=== PATIENT | female | born 1995 | race Caucasian/White ===

== ENCOUNTER 2017-12-02 16:09 | Observation (INO) | payer BC, SELFPAY ==
[2017-12-02] VITALS (9 sets, daily range): BP systolic 103–125; BP diastolic 60–87; PULSE 72–130; RESP 16–18; TEMP 36.2–37.2; O2SAT 90–110; BMI 22.1; BMI 22.3
[2017-12-02] MEDS: 0.9% Normal Saline 1,000 ML 1000 ML IV (16:30)
--- NOTE | 2017-12-02 16:38 | CT_ITS ---
STUDY: CT ABDOMEN AND PELVIS WITH CONTRAST REASON FOR EXAM: Female, 21 years old. Left lower quadrant pain. RADIATION DOSAGE (If Supplied By Facility): CTDIvol = ( 8.04 ) mGy, DLP = ( 313.28 ) mGycm TECHNIQUE: Transaxial images were obtained from the dome of the diaphragm to the symphysis pubis with oral contrast. 100 ml of Isovue 300 contrast was administered. Sagittal and coronal images were reconstructed. Individualized dose optimization techniques were used for this CT. COMPARISON: None. FINDINGS: The visualized lung bases are unremarkable. The visualized portions of the heart are within normal limits. Normal liver. Normal gallbladder and extrahepatic biliary system. Normal spleen. Normal pancreas. Normal bilateral adrenal glands. Normal right kidney. Normal left kidney. Normal visualized stomach. Normal small intestine. Normal colon. There is a tubular, thick-walled appendix (>7mm), consistent with acute appendicitis. Appendix measures 1.1 cm across with thickened tamayo and there is mild periappendiceal stranding. No abscess or perforation. Normal abdominal aorta. Normal inferior vena cava. Normal retroperitoneum. Normal urinary bladder. Normal visualized uterus. Normal abdominal wall. Normal osseous structures. CT/Abdomen/Pelvis WITH Contrast IMPRESSION: Acute appendicitis without evidence for perforation or abscess. N.B. : The above information has been verbally conveyed by Gerry Butler MD to Dr. Abimael Mcdaniel, Referring Physician, on 12/02/2017 20:06:53 (ET). Electronically Signed: Gerry Butler MD at 19:56 EST , Service support , N.B. : The above information has been verbally conveyed by Gerry Butler MD to Dr. Abimael Mcdaniel, Referring Physician, on 12/02/2017 20:06:53 (ET).
[2017-12-02] MEDS: Ondansetron 4 MG/2 ML Vial IV (16:50)
[2017-12-02] MEDS: Ketorolac 30 MG/ML Syringe IV (16:50)
[2017-12-02 16:58] LABS: Absolute Lymphocyte Count 0.86 X10^3/ul (0.83-4.51); Absolute Neutrophil Count 15.4 X10^3/uL (2.0-7.7); Basophil# 0.01 X10^3/uL; Basophil% 0.1 % (0-1); Hematocrit 44.1 % (37-47); Hemoglobin 15.1 g/dl (12.0-15.0); Lymphocyte # 0.86 X10^3/ul (4.0); Mean Corp Hgb Conc 34.2 g/gl (32-36); Mean Corpuscular Hgb 28.3 pg (27.0-32.0); Mean Corpuscular Volume 82.6 fL (81-99); Mean Platelet Vol. 9.1 fl (6.2-12.0); Monocyte# 0.73 X10^3/uL; Monocyte% 4.3 % (0-10); Neutrophil # 15.39 X10^3/uL (2.7-7.7); Neutrophil % 90.4 % (47-70); POSITIVE COUNT NO; POSITIVE DIFFERENTIAL NO; POSITIVE MORPHOLOGY NO; Platelet Count 223 K/mm3 (150-450); RBC Distribution Width CV 11.7 % (11.6-14.6); Red Blood Count 5.34 M/mm3 (4.2-5.4)
[2017-12-02 17:10] LABS: ALB/GLOB Ratio 0.9 RATIO (0.9-2.4); AST(SGOT) 20 U/L (15-37); Alanine Aminotransfer ALT/SGPT 35 U/L (13-56); Albumin, Serum 3.8 g/dL (3.2-5.0); Alkaline Phosphatase 62 U/L (45-117); Anion Gap 14 (5-15); BUN 11 mg/dL (7-18); Calcium,Total 9.2 mg/dL (8.5-10.1); Chloride 102 mmol/L (98-107); Creatinine, Serum 0.92 mg/dL (0.55-1.02); EST Glomerular Filtration Rate 80 mL/min (>60); Est Glom Filt Rate - Afr Amer 97 mL/min (>60); Estimated Creatinine Clearance 85.58 ml/min; Globulin 4.3 g/dL (2.2-4.2); Glucose 155 mg/dL (74-106); Lipase 153 U/L (73-393); Potassium 3.6 mmol/L (3.5-5.1); Protein, Total 8.1 g/dL (6.4-8.2); Sodium Level 137 mmol/L (136-145)
[2017-12-02 17:25] LABS: Pregnancy, Serum, hCG Quali. NEGATIVE Negative (0-9 Nonpreg)
[2017-12-02 18:10] LABS: Bacteria 0 SEEN /hpf (None Seen)
[2017-12-02 18:24] LABS: Color, Urine Yellow (Yellow); Glucose, Dipstick Normal (Normal); Leukocyte Esterase-Dipstick 25 /ul (Negative); Nitrite-Dipstick Negative (Negative); Occult Blood-Urine 150 /ul (Negative); Protein-Dipstick Negative (Negative); Urine Bilirubin Dipstick Negative (Negative); Urine Clarity Sl. Cloudy (Clear); Urine Urobilinogen Normal (Normal)
[2017-12-02 18:26] LABS: Ketone-Dipstick 150 mg/dl (Negative)
[2017-12-02 18:33] LABS: Amorphous Sediment 1+; Mucous, Urine 1+ /hpf (<or=2+); Red Blood Cells-Urine 0-5 SEEN /hpf (0-5); Squamous Epithelial Cells - UA 0-5 SEEN /hpf (5-10); White Blood Cells 0-5 SEEN /hpf (0-5)
--- NOTE | 2017-12-02 20:15 | ED.VISSUMM ---
- ER Visit Summary Date of Service: 12/02/17 Chief Complaint: Abdominal pain History of Present Illness: The patient is a 21 F who presents with abdominal pain. It is been present for about 4-5 hours. She describes it as cramping but sharp at times. It waxes and wanes. It is located in the left lower abdomen. She currently reports her pain is 5 out of 10 but it has been up to 8 out of 10 at its worst. She has had 6 episodes of nonbloody nonbilious emesis. She denies diarrhea dysuria frequency urgency. She is currently on her menstrual period. She states she has had similar symptoms in the past but had pelvic ultrasound at that time but her pain seems to be higher than that. Physical Examination: Heart rate 107 vitals otherwise unremarkable Moist mucous membranes Heart regular rhythm tachycardia Lungs are clear Abdomen soft nondistended she does have some mild minimal tenderness in the mid left abdomen she has no guarding no rebound no Arana's sign or Rovsing sign Test Results: Laboratory studies notable for white blood cell count 17,000. Urinalysis is normal and is negative. CT of the abdomen and pelvis is consistent with acute appendicitis. Emergency Department Course and Treatment: She was given IV fluids Toradol and Zofran here and actually had complete resolution of her pain. Her CAT scan is consistent with acute appendicitis. I spoke to Dr. Wang, general surgeon construction quality control manager who will see the patient here in the emergency department. Treatment Plan: [] Disposition: Pending surgical evaluation Impression: Acute appendicitis This note was generated with [employer] dictation software. It may contain incorrect words, spelling, and punctuation that were not noted in review of the chart prior to signing ED Disposition - Plan for ED Patient: Chief Complaint: Abd Pain Referrals: Annabel Jaramillo MD [Primary Care Provider] -
--- NOTE | 2017-12-02 20:49 | PCM.CONS.GEN ---
Problem List (1) Appendicitis Status: Acute Qualifiers: Appendicitis type: acute appendicitis Acute appendicitis type: with localized peritonitis Qualified Code(s): K35.3 - Acute appendicitis with localized peritonitis Reason for Consult Date of Consultation: 12/02/17 History of Present Illness: The patient is a 21 F who presents with abdominal pain. It is been present for about 4-5 hours. She describes it as cramping but sharp at times. It waxes and wanes. It is located in the left lower abdomen. She currently reports her pain is 5 out of 10 but it has been up to 8 out of 10 at its worst. She has had 6 episodes of nonbloody nonbilious emesis. She denies diarrhea dysuria frequency urgency. She is currently on her menstrual period. She states she has had similar symptoms in the past but had pelvic ultrasound at that time but her pain seems to be higher than that. CAT scan was obtained which showed periappendiceal inflammation and fluid nothing that look like a ruptured appendicitis appendix itself was dilated. Past Medical History Allergies No Known Allergies Allergy (Verified 12/02/17 16:14) Home Medications: Ambulatory Orders Medication Instructions Recorded Control 1 tab PO DAILY 12/02/17 Surgical History: no surgical history Smoking Status: Never smoker Tobacco Use: Non-smoker - *Family History Maternal History Items: No pertinent history Review of Systems Constitutional: Denies: Chills, Fever, Weight Change Eyes: Denies: Blurred vision, Pain, Redness, Vision Change HEENT: Denies: Dysphasia, Ear Pain, Eye Pain, Head Aches, Hearing Changes, Sore Throat Cardiovascular: Denies: Chest Pain, Chest Pressure, Chest Tightness, Palpitations Respiratory: Denies: Cough, Hemoptysis, Shortness of breath at rest, Shortness of breath upon exertion, Wheezing Gastrointestinal: Reports: Abdominal Pain, Nausea, Vomiting Genitourinary: Denies: Dysuria, Frequency, Hematuria, Urgency Musculoskeletal: Denies: Joint Pain Skin: Denies: Lesions, Rash, Wounds Neurological: Denies: Change in Speech, Confusion, Numbness, Tingling, Seizures Psychiatric: Denies: Anxiety, Depression Endocrine: Denies: Heat/ Cold Intolerance, Polydipsia, Polyuria Hematologic/ Lymphatic: Denies: Adenopathy, Easy Bruising Patient Problems: Active and Suspected Problems Appendicitis (Acute) - Physical Exam General: Alert, Oriented x3 HEENT: Atraumatic, PERRLA, EOMI, Normocephalic Oral: Moist Mucosa Neck: Supple, No JVD Lungs: Clear to auscultation Cardiovascular: Regular rate, Regular Rhythm, No murmurs Abdomen: Bowel Sounds Present, Soft, Non-Distended, Tender - Right lower quadrant abdominal tenderness is identified no peritoneal signs is identified. Extremities: No clubbing, No cyanosis, No edema Skin: No rashes, No breakdown Musculoskeletal: No Tenderness to Palpation of Joints or Extremities Lymphatic: No Cervical, Supraclavicular, or Inguinal Adenopathy Neurological: Cranial nerves II-XII grossly intact Psych/Mental Status: Normal Affect, Appropriate Vital Signs Temp Pulse Resp BP Pulse Ox 97.1 F L 72 16 111/64 98 12/02/17 16:11 12/02/17 19:10 12/02/17 19:10 12/02/17 19:10 12/02/17 19:10 Oxygen Delivery Method Room Air Weight: 132 lb 11.492 oz Body Mass Index (BMI) 22.1 Laboratory Tests Past 24 Hrs 12/02/17 12/02/17 12/02/17 16:30 16:30 16:48 WBC 17.0 H RBC 5.34 Hgb 15.1 H Hct 44.1 MCV 82.6 MCH 28.3 MCHC 34.2 RDW 11.7 RDW Differential 35.0 L Plt Count 223 MPV 9.1 Immature Gran % (Auto) 0.200 Neut % (Auto) 90.4 H Lymph % (Auto) 5.0 L [place] % (Auto) 4.3 Eos % (Auto) 0.0 Baso % (Auto) 0.1 Absolute Neuts (auto) 15.4 H Absolute Lymphs (auto) 0.86 Total Counted Not Reportable Sodium 137 Potassium 3.6 Chloride 102 Carbon Dioxide 21.0 Anion Gap 14 BUN 11 Creatinine 0.92 Estim Creat Clear Calc 85.58 Est GFR (MDRD) Af Amer 97 Est GFR (MDRD) Non-Af 80 BUN/Creatinine Ratio 12.0 Glucose 155 H Calcium 9.2 Total Bilirubin 0.90 AST 20 ALT 35 Alkaline Phosphatase 62 Total Protein 8.1 Albumin 3.8 Globulin 4.3 H Albumin/Globulin Ratio 0.9 Lipase 153 Serum , Qual NEGATIVE Urine Color Urine Clarity Urine pH Ur Specific [place] Urine Protein Urine Glucose (UA) Urine Ketones Urine Occult Blood Urine Nitrite Urine Bilirubin Urine Urobilinogen Ur Leukocyte Esterase Urine RBC Urine WBC Ur Squamous Epith Cells Amorphous Sediment Urine Bacteria Urine Mucus 12/02/17 18:08 WBC RBC Hgb Hct MCV MCH MCHC RDW RDW Differential Plt Count MPV Immature Gran % (Auto) Neut % (Auto) Lymph % (Auto) [place] % (Auto) Eos % (Auto) Baso % (Auto) Absolute Neuts (auto) Absolute Lymphs (auto) Total Counted Sodium Potassium Chloride Carbon Dioxide Anion Gap BUN Creatinine Estim Creat Clear Calc Est GFR (MDRD) Af Amer Est GFR (MDRD) Non-Af BUN/Creatinine Ratio Glucose Calcium Total Bilirubin AST ALT Alkaline Phosphatase Total Protein Albumin Globulin Albumin/Globulin Ratio Lipase Serum , Qual Urine Color Yellow Urine Clarity Sl. Cloudy Urine pH 7.0 Ur Specific [place] 1.010 Urine Protein Negative Urine Glucose (UA) Normal Urine Ketones 150 H Urine Occult Blood 150 H Urine Nitrite Negative Urine Bilirubin Negative Urine Urobilinogen Normal Ur Leukocyte Esterase 25 H Urine RBC 0-5 SEEN Urine WBC 0-5 SEEN Ur Squamous Epith Cells 0-5 SEEN Amorphous Sediment 1+ Urine Bacteria 0 SEEN Urine Mucus 1+ Assessment/Plan Active and Suspected Problems Appendicitis (Acute) The plan is to perform a laparoscopic appendectomy. Procedure was explained in great detail with her and her mother all questions asked were answered and she agrees to proceed wrist benefits were reviewed to include bleeding infection possible delayed infection possible injury to underlying and overlying structures around the appendix.
--- NOTE | 2017-12-02 20:51 | APP_PTH ---
PATIENT: ONDINA CURRAN LOC: MS2 U#:[id number] AGE/SX: 21/F [place] [facility] [place]: Dr. Brent Wang MD : 1995 BED: 1 DIS: 12/03/2017 SPEC #: [id number] RECD: 12/04/17 10:17 STATUS: YULI RETracy #: [id number] MAAME: 12/02/17 20:[address]: Brent Wang DEPT: SURGICAL PATHOLOGY RECD BY: Ezequiel Rain ENTERED: 12/04/17 13:19 SP TYPE: APPENDIX OTHR DR: Dr. Annabel Jaramilol MD Tissues: Appendix, NOS Procedures: Surgery Specimen Level III HEADER OPERATION: Laparoscopic appendectomy PRE-OP DIAGNOSIS: Acute appendicitis TISSUE SUBMITTED: Appendix MICROSCOPIC DIAGNOSIS Appendix: Acute appendicitis and periappendicitis. SJ:acacia 12/05/17 MICROSCOPIC DESCRIPTION Slides are reviewed. GROSS DESCRIPTION Received is one container labeled with the patient's name and designated appendix. The specimen consists of an appendix measuring 7 cm in length and 1.5 cm in average diameter. No gross perforations are evident. Serial sections reveal a pinpoint lumen. The margin of excision is inked in black ink. [employer] Machine Tender sections are submitted in one cassette. / AM:acacia 12/04/17 TC:2 CPT: 93212
[2017-12-02] MEDS: Bupivacaine 0.25% 30 ML Vial (21:40)
--- NOTE | 2017-12-02 22:15 | PCM.OPRPT ---
Problem List (1) Appendicitis Status: Acute Qualifiers: Appendicitis type: acute appendicitis Acute appendicitis type: with localized peritonitis Qualified Code(s): K35.3 - Acute appendicitis with localized peritonitis Report of Operation Date of Procedure: 12/02/17 Pre-Operative Diagnosis: K 35.3 acute appendicitis Post-Operative Diagnosis: Same Surgery/Procedure Performed:: 06180 laparoscopic appendectomy Type of Anesthesia:: General Anesthesiologist: Mau Mcknight Description of Procedure: Patient was brought in the operating room placed in supine position under excellent general endotracheal intubation the abdomen was sterilely prepped and draped in the usual fashion. Local was injected infraumbilically. Incision was made down to the fascia. The fascia was grasped with a Desire. Varies needle was placed inside the abdomen. A 10/12 trocar was placed without difficulty. Patient was placed in the headdown position. A #5 trocar was placed suprapubically, a #5 trocar was placed in the left lower quadrant. Both of these were placed under direct visualization without injury to underlying structures. Patient was placed head down rotated to the left she was noted to have a retrocecal appendicitis which had not ruptured I took the mesentery and mesoappendix down with the Enseal I transected the base of the appendix with a 45 linear cutter I had excellent hemostasis both on the base and on the mesenteric blood supply. I placed a specimen a specimen bag delivered through the umbilical port without difficulty I irrigated the right lower quadrant I irrigated the pelvis she was noted to have an omental adhesion on the right fallopian tube to the omentum I took this down with the Enseal staying on the omental side. The rest of the uterus and both ovaries appear normal. There is no purulent fluid in the pelvis. There is no purulent fluid above the liver. I remove the trochars under direct visualization. Good hemostasis was noted. Close the fascia the umbilical port with a [id number] stitch of 0 Vicryl. Skin incisions were closed with subcuticular stitches of 4-0 Monocryl. Steri-Strips are applied. Sterile dressings were applied. The patient tolerated the procedure well. - Admit VTE Documentation VTE Present on Admission: No VTE Mechan Device Prophylaxis: SCD's VTE Pharm Prophylaxis ordered?: No Reason prophylaxis not ordered:: Treatment Not Indicated
--- NOTE | 2017-12-02 22:18 | OP.PCM_ITS ---
Problem List (1) Appendicitis Status: Acute Qualifiers: Appendicitis type: acute appendicitis Acute appendicitis type: with localized peritonitis Qualified Code(s): K35.3 - Acute appendicitis with localized peritonitis Report of Operation Date of Procedure: 12/02/17 Pre-Operative Diagnosis: K 35.3 acute appendicitis Post-Operative Diagnosis: Same Surgery/Procedure Performed:: [id number] laparoscopic appendectomy Type of Anesthesia:: General Anesthesiologist: Mau Mcknight Description of Procedure: Patient was brought in the operating room placed in supine position under excellent general endotracheal intubation the abdomen was sterilely prepped and draped in the usual fashion. Local was injected infraumbilically. Incision was made down to the fascia. The fascia was grasped with a Desire. Varies needle was placed inside the abdomen. A 10/12 trocar was placed without difficulty. Patient was placed in the headdown position. A #5 trocar was placed suprapubically, a #5 trocar was placed in the left lower quadrant. Both of these were placed under direct visualization without injury to underlying structures. Patient was placed head down rotated to the left she was noted to have a retrocecal appendicitis which had not ruptured I took the mesentery and mesoappendix down with the Enseal I transected the base of the appendix with a 45 linear cutter I had excellent hemostasis both on the base and on the mesenteric blood supply. I placed a specimen a specimen bag delivered through the umbilical port without difficulty I irrigated the right lower quadrant I irrigated the pelvis she was noted to have an omental adhesion on the right fallopian tube to the omentum I took this down with the Enseal staying on the omental side. The rest of the uterus and both ovaries appear normal. There is no purulent fluid in the pelvis. There is no purulent fluid above the liver. I remove the trochars under direct visualization. Good hemostasis was noted. Close the fascia the umbilical port with a [id number] stitch of 0 Vicryl. Skin incisions were closed with subcuticular stitches of 4-0 Monocryl. Steri- Strips are applied. Sterile dressings were applied. The patient tolerated the procedure well. - Admit VTE Documentation VTE Present on Admission: No VTE Mechan Device Prophylaxis: SCD's VTE Pharm Prophylaxis ordered?: No Reason prophylaxis not ordered:: Treatment Not Indicated
[2017-12-02] MEDS: Lactated Ringers 1,000 ML 75 ML IV (23:20)
[2017-12-03 00:50] VITALS: BP 106/66; PULSE 100; RESP 16; TEMP 37.3; O2SAT 98
[2017-12-03 02:50] VITALS: BP 109/62; PULSE 102; RESP 16; TEMP 37.1; O2SAT 98
[2017-12-03] MEDS: Piperacil/Tazobactam 3.375 GM/50 ML ML IV ×2 (05:33→13:05)
[2017-12-03 08:45] VITALS: BP 114/75; PULSE 89; RESP 16; TEMP 36.8; O2SAT 100
--- NOTE | 2017-12-03 11:27 | DCINST_ITS ---
Discharge Diet: Light diet - advance as tolerated - if you have questions about your diet instructions, please talk to you doctor. Discharge Activity: May Not Drive - for 3-5 days or while taking narcotic pain meds. May shower in (days): 1 Call your doctor if your incision/area has: Continuous Slow Oozing, Sudden Increased Bleeding, Increased Pain/ Swelling, Increased Redness, Foul Smelling Discharge Call your doctor if you observe: Fever of 101 or Higher Suture Line Care: Avoid Pulling/Pushing, Avoid Pinching/Bending Additional Dressing/Incision Instructions:: Keep dressing clean and dry. Change or remove dressing in 2 days. Leave steri strips for 1 week. May protect with a gauze bandaid. Medications to take at Discharge Control 1 tab PO DAILY 12/02/17 Oxycodone HCl/Acetaminophen [Percocet 5/325] 1 - 2 tab PO Q4H PRN PRN 4 Days # 30 tab 12/03/17 Allergies/Adverse Reactions: Allergies No Known Allergies Allergy (Verified 12/02/17 16:14) The following prescriptions were given: Oxycodone HCl/Acetaminophen [Percocet 5/325] 1 - 2 tab PO Q4H PRN PRN 4 Days # 30 tab PRN Reason: Pain Primary Care Physician: Annabel Jaramillo MD [Primary Care Provider] - Please Follow Up With: Brent Wang MD - [phone] When: Call to make a follow up appointment with your doctor in 1 week.
--- NOTE | 2017-12-03 11:27 | PCM.PN.SRG ---
Patient Problems: Active and Suspected Problems Appendicitis (Acute) Subjective: Patient's pain is improving. She has discomfort at her incisional site but abdominal discomfort is no longer present. - Physical Exam Abdomen: Bowel Sounds Present, Soft, Non Tender, Non-Distended Vital Signs Temp Pulse Resp BP Pulse Ox 98.3 F 89 16 114/75 100 12/03/17 08:45 12/03/17 08:45 12/03/17 08:45 12/03/17 08:45 12/03/17 08:45 Oxygen Flow Rate 2 Oxygen Delivery Method Room Air Weight: 134 lb 0.657 oz Body Mass Index (BMI) 22.3 Intake and Output for Last 24 Hours 12/01/17 12/02/17 12/03/17 23:59 23:59 23:59 Intake Total 2099 781 / 781 Output Total 1700 / 1700 Balance 2099 -919 / -919 Laboratory Tests Past 24 Hrs 12/02/17 12/02/17 12/02/17 16:30 16:30 16:48 WBC 17.0 H RBC 5.34 Hgb 15.1 H Hct 44.1 MCV 82.6 MCH 28.3 MCHC 34.2 RDW 11.7 RDW Differential 35.0 L Plt Count 223 MPV 9.1 Immature Gran % (Auto) 0.200 Neut % (Auto) 90.4 H Lymph % (Auto) 5.0 L [place] % (Auto) 4.3 Eos % (Auto) 0.0 Baso % (Auto) 0.1 Absolute Neuts (auto) 15.4 H Absolute Lymphs (auto) 0.86 Total Counted Not Reportable Sodium 137 Potassium 3.6 Chloride 102 Carbon Dioxide 21.0 Anion Gap 14 BUN 11 Creatinine 0.92 Estim Creat Clear Calc 85.58 Est GFR (MDRD) Af Amer 97 Est GFR (MDRD) Non-Af 80 BUN/Creatinine Ratio 12.0 Glucose 155 H Calcium 9.2 Total Bilirubin 0.90 AST 20 ALT 35 Alkaline Phosphatase 62 Total Protein 8.1 Albumin 3.8 Globulin 4.3 H Albumin/Globulin Ratio 0.9 Lipase 153 Serum , Qual NEGATIVE Urine Color Urine Clarity Urine pH Ur Specific [place] Urine Protein Urine Glucose (UA) Urine Ketones Urine Occult Blood Urine Nitrite Urine Bilirubin Urine Urobilinogen Ur Leukocyte Esterase Urine RBC Urine WBC Ur Squamous Epith Cells Amorphous Sediment Urine Bacteria Urine Mucus 12/02/17 18:08 WBC RBC Hgb Hct MCV MCH MCHC RDW RDW Differential Plt Count MPV Immature Gran % (Auto) Neut % (Auto) Lymph % (Auto) [place] % (Auto) Eos % (Auto) Baso % (Auto) Absolute Neuts (auto) Absolute Lymphs (auto) Total Counted Sodium Potassium Chloride Carbon Dioxide Anion Gap BUN Creatinine Estim Creat Clear Calc Est GFR (MDRD) Af Amer Est GFR (MDRD) Non-Af BUN/Creatinine Ratio Glucose Calcium Total Bilirubin AST ALT Alkaline Phosphatase Total Protein Albumin Globulin Albumin/Globulin Ratio Lipase Serum , Qual Urine Color Yellow Urine Clarity Sl. Cloudy Urine pH 7.0 Ur Specific [place] 1.010 Urine Protein Negative Urine Glucose (UA) Normal Urine Ketones 150 H Urine Occult Blood 150 H Urine Nitrite Negative Urine Bilirubin Negative Urine Urobilinogen Normal Ur Leukocyte Esterase 25 H Urine RBC 0-5 SEEN Urine WBC 0-5 SEEN Ur Squamous Epith Cells 0-5 SEEN Amorphous Sediment 1+ Urine Bacteria 0 SEEN Urine Mucus 1+ Assessment/Plan Active and Suspected Problems Appendicitis (Acute) We will give the patient one last dose of antibiotics today then she may be discharged on pain medication only
[2017-12-03 13:45] VITALS: BP 112/72; PULSE 78; RESP 16; TEMP 37; O2SAT 99
== END 2017-12-03 14:00 | disposition home or self-care (01) ==
LOC: ED 17:53 → SDC 20:42 → MS2 20:43
PROVIDERS: Admitting Provider Surgery; Emergency Provider Emergency Medicine; Family Provider Family Medicine; PCP Family Medicine; Visit Provider Surgery
PROC: 0DTJ4ZZ Resection of Appendix, Percutaneous Endoscopic Approach (ICD-10-PCS; CPT 44970; principal; 2017-12-02 20:51)
DX: K35.3 Acute appendicitis with localized peritonitis (principal); Z79.3 Long term (current) use of hormonal contraceptives
CPT/HCPCS: 44970; 74177; 80053; 81001; 83690; 84703; 85025; 88304; 96361; 96365; 96366; 96375; 99218; 99284; J7030; J7040; J7120; Q9967; A4216; G0378; J2405